=== PATIENT | female | born 1960 | race African-American/Black ===

== ENCOUNTER 2016-04-26 23:41 | Emergency (ER) | payer OTHER ==
[~2016-04-26] VITALS: Ht 162.6 cm; Wt 66.0 kg
[~2016-04-26 23:41] MED LIST: MOBI7.5T PO
[2016-04-26 23:43] VITALS: BP 185/95; PULSE 83; RESP 14; TEMP 98.4; O2SAT 96
[2016-04-27] MEDS ORDERED: DICL50TA3 PO (00:59)
[2016-04-27] MEDS ORDERED: CYCL1TAB29 PO (00:59)
[2016-04-27] MEDS ORDERED: IBUPROFEN 600 MG TAB PO ONE (01:00)
[2016-04-27] MEDS ORDERED: CYCLOBENZAPRINE HCL 10 MG TAB PO ONE (01:00)
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
[2016-04-27 01:11] VITALS: BP 157/84
[2016-05-07] MEDS ORDERED: MELO7.5T4 PO (10:30)
[2016-05-07] MEDS ORDERED: CYCL5TAB PO (10:30)
[2016-05-07] MEDS ORDERED: BENZ100 PO (10:30)
[2016-05-14] MEDS ORDERED: BROMSYP PO (09:46)
[2016-06-04] MEDS ORDERED: DICL50TA3 PO (10:23)
[2016-08-02] MEDS ORDERED: PANT20 PO (11:44)
== END 2016-04-27 01:20 | disposition home or self-care (01) ==
LOC: NEPB 23:41
DX: S00.81XA Abrasion of other part of head, initial encounter (principal); S39.012A Strain of muscle, fascia and tendon of lower back, initial encounter; V43.62XA Car passenger injured in collision with other type car in traffic accident, initial encounter; W22.12XA Striking against or struck by front passenger side automobile airbag, initial encounter; Y92.410 Unspecified street and highway as the place of occurrence of the external cause
CPT/HCPCS: 99283

== ENCOUNTER 2016-11-04 13:03 | Emergency (ER) | payer OTHER ==
[~2016-11-04] VITALS: Ht 162.6 cm; Wt 67.0 kg
[~2016-11-04 13:03] MED LIST changes: +DICL50TA3 PO; -MOBI7.5T PO; +PANT20 PO
[2016-11-04 13:05] VITALS: BP 178/98; PULSE 82; RESP 20; TEMP 98.7; O2SAT 99
[2016-11-04] MEDS ORDERED: BACT800T5 PO (14:23)
[2016-11-04] MEDS ORDERED: NAPR500 PO (14:25)
--- NOTE | 2016-11-04 14:25 | PD ---
HPI Chief Complaint: Skin Problem Time Seen by Provider: 14:00 Travel History International Travel<30 days: No Contact w/Intl Traveler<30days: No Traveled to known affect area: No History of Present Illness HPI 56-year-old female with chief complaint of left thumb pain 4 days. Patient reports she noticed a yellowish/greenish discoloration around the nail bed and cuticle today. She denies injury. She denies fever or chills. She has full range of motion of the digit. 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 2007) Respiratory: Yes (BRONCHITIS) ?: Not Menopausal: Yes : 4 Para: 4 Tubal Ligation: Yes (1990) Past Surgical History Section: Yes Cholecystectomy: Yes Hysterectomy: Yes (PARTIAL) Social History Alcohol Use: Yes ("WEEKENDS") Tobacco Use: No Substance Use: No Allergies-Medications (Allergen,Severity, Reaction): Coded Allergies: No Known Allergies (Verified , 11/04/16) Reported Meds & Prescriptions Reported Meds & Active Scripts Active Bactrim DS (Sulfamethoxazole-Trimethoprim) 800-160 Mg Tab 1 Tab PO BID Protonix (Pantoprazole Sodium) 20 Mg Tab 20 Mg PO DAILY Diclofenac Sodium DR (Diclofenac Sodium) 50 Mg Tabdr 50 Mg PO TID Review of Systems Except as stated in HPI: all other systems reviewed are Neg Physical Exam Narrative GENERAL: Well-nourished, well-developed patient. SKIN: Focused skin assessment warm/dry. Small paronychia left thumb. No surrounding cellulitis or erythema. HEAD: Normocephalic. EYES: No scleral icterus. No injection or drainage. NECK: Supple, trachea midline. No JVD or lymphadenopathy. CARDIOVASCULAR: Regular rate and rhythm without murmurs, gallops, or rubs. RESPIRATORY: Breath sounds equal bilaterally. No accessory muscle use. GASTROINTESTINAL: Abdomen soft, non-tender, nondistended. MUSCULOSKELETAL: No cyanosis, or edema. Data Data Last Documented VS Vital Signs Date Time Temp Pulse Resp B/P Pulse Ox O2 Delivery O2 Flow Rate FiO2 11/04/16 13:05 98.7 82 20 178/98 99 Room Air MDM Medical Decision Making Medical Screen Exam Complete: Yes Emergency Medical Condition: Yes Differential Diagnosis Paronychia, abscess on the cellulitis Narrative Course 56 old female with chief complaint of left thumb pain 4 days. On exam patient has a small paronychia. I&D performed patient tolerated procedure well. Antibiotics will be prescribed. Return precautions discussed. Patient verbalizes understanding and agrees to plan. Procedures Procedure Narrative Incision and drainage of a paronychia. Thumb was prepped with Betadine. Ethyl chloride used as anesthesia. Small incision made with #11 blade. Moderate amount of purulent drainage expressed. Sterile dressing applied patient tolerated procedure well. Diagnosis Primary Impression: Paronychia Qualified Code: L03.012 - Paronychia, left Referrals: Primary Care Physician Additional Instructions: Take the antibiotic as prescribed. Soak the extremity in warm soapy water several times per day. Return to emergency department if he developed new or worsening symptoms. Scripts Naproxen (Naprosyn)500 Mg Jic552 Mg PO BID #20 TAB Ref 0 Prov:Edith Pedroza 11/04/16 Sulfamethoxazole-Trimethoprim (Bactrim DS)800-160 Mg Tab1 Tab PO BID #20 TAB Prov:Edith Pedroza 11/04/16 Disposition: 01 DISCHARGE HOME Condition: Stable Edith Pedroza Nov 04, 2016 14:25
== END 2016-11-04 15:10 | disposition home or self-care (01) ==
LOC: NEPK 13:03
DX: L03.012 Cellulitis of left finger (principal); Z79.899 Other long term (current) drug therapy
CPT/HCPCS: 10060